=== PATIENT | female | born 1935 | race Two or more races ===

== ENCOUNTER 2017-09-11 12:18 | Inpatient (IN) | payer OTHER ==
[~2017-09-11] VITALS: Ht 162.6 cm; Wt 61.3 kg
[~2017-09-11 12:18] MED LIST: LEVO150T58 PO; SERT-135 PO
[2017-09-11] MEDS ORDERED: SODIUM CHLORIDE 0.9% 1,000 ML IV ONE (12:31)
[2017-09-11] MEDS ORDERED: ALBUTEROL SULF 2.5 MG/0.5ML(0.5%) NEB SOLN HHN ONE (12:45)
[2017-09-11] MEDS ORDERED: IPRATROPIUM BROM 0.5 MG/2.5ML INH SOL HHN ONE (12:45)
[2017-09-11] MEDS ORDERED: methylPREDNISolone SOD SUCC 125 MG/2 ML VL IV ONE (12:45)
[2017-09-11] MEDS ORDERED: LEVOFLOXACIN 500MG 100 ML IV ONE (12:45)
[2017-09-11 13:01] LABS: Basophils # (auto) 0.1 uL; Basophils % (auto) 0.9 % (0.0-2.0); Eosinophils # (auto) 0.6 uL; Eosinophils % (auto) 9.8 % (0.0-7.0); Lymphocytes # (auto) 0.9 uL; Lymphocytes % (auto) 15.8 % (10.0-50.0); Mean Corpuscular Hemoglobin 27.2 pg (28.0-32.0); Mean Corpuscular Hgb Conc. 32.5 g/dL (32.0-36.0); Mean Corpuscular Volume 83.7 fL (80.0-100.0); Monocytes # (auto) 0.8 uL; Monocytes % (auto) 12.7 % (0.0-12.0); Neutrophils # (auto) 3.6 uL; Neutrophils % (auto) 60.8 % (37.0-80.0); Platelet Count (auto) 142 10^3/uL (140-450); Red Blood Cells 4.42 10^6/uL (4.0-5.20); Red Cell Distribution Width 15.8 % (11.8-14.3)
[2017-09-11 13:22] LABS: Alanine Aminotransferase 22 U/L (13-56); Albumin 3.4 g/dL (3.4-5.0); Anion Gap 5 (5-15); BUN/Creatinine Ratio 30.4; Blood Urea Nitrogen 14 mg/dL (7-18); Calcium 8.1 mg/dL (8.5-10.1); Carbon Dioxide 32 mmol/L (21-32); Chloride 103 mmol/L (98-107); GFR African American 166 mL/min; GFR Non-African American 138 mL/min; Glucose 102 mg/dL (74-106); Potassium 3.9 mmol/L (3.5-5.1); Sodium 140 mmol/L (136-145)
[2017-09-11] MEDS ORDERED: HYDROcodone-ACET 5/325MG TAB PO PRN (13:30)
[2017-09-11] MEDS ORDERED: NITROGLYCERIN 0.4 MG SL TAB SL PRN (13:30)
[2017-09-11] MEDS ORDERED: ACETAMINOPHEN 500 MG TAB PO PRN (13:30)
[2017-09-11] MEDS ORDERED: PROMETHAZINE HCL 25 MG/ML 1ML IV PRN (13:30)
[2017-09-11] MEDS ORDERED: OSELTAMIVIR 75 MG CAP PO ONE (13:30)
[2017-09-11] MEDS ORDERED: MORPHINE SULFATE 4 MG/ML SYR/VIAL IV PRN ×2 (13:30)
[2017-09-11] MEDS ORDERED: ALBUTEROL SULF 2.5 MG/0.5ML(0.5%) NEB SOLN NEB PRN (13:30)
[2017-09-11] MEDS ORDERED: LACTULOSE 20Gm/30ML SOLN PO PRN (13:30)
[2017-09-11 13:31] LABS: Alkaline Phosphatase 64 U/L (45-117); Aspartate Aminotransferase 20 U/L (15-37); Bilirubin, Total 0.2 mg/dL (0.2-1.0); Total Protein 6.8 g/dL (6.4-8.2)
[2017-09-11] MEDS: OSELTAMIVIR 30 MG CAP PO SCH (13:45)
[2017-09-11] MEDS ORDERED: OSELTAMIVIR 30 MG CAP PO ONE (13:45)
[2017-09-11] MEDS: DOXYCYCLINE HYC 100MG/250ML 250 ML IV SCH (13:50)
[2017-09-11] MEDS: SODIUM CHLOR 0.9% PF (SALINE LOCK) 10ML VIAL IV SCH (14:00)
[2017-09-11] MEDS: methylPREDNISolone SOD SUCC 40 MG/ML VL IV SCH (18:07)
[2017-09-11] MEDS: ALBUTEROL SULF 2.5 MG/0.5ML(0.5%) NEB SOLN NEB SCH (19:08)
[2017-09-11] MEDS: IPRATROPIUM BROM 0.5 MG/2.5ML INH SOL NEB SCH (19:15)
[2017-09-11 21:35] VITALS: BP 128/64
[2017-09-11 22:00] VITALS: BP 140/70
[2017-09-11] MEDS: TEMAZEPAM 15 MG CAP PO PRN (22:02)
[2017-09-11] MEDS: CARVEDILOL 3.125 MG TAB PO SCH (22:02)
[2017-09-12] MEDS: IPRATROPIUM BROM 0.5 MG/2.5ML INH SOL NEB SCH ×4 (00:02→18:35)
[2017-09-12] MEDS: ALBUTEROL SULF 2.5 MG/0.5ML(0.5%) NEB SOLN NEB SCH ×4 (00:02→18:34)
[2017-09-12] MEDS: SODIUM CHLOR 0.9% PF (SALINE LOCK) 10ML VIAL IV SCH ×4 (01:15→22:12)
[2017-09-12] MEDS: methylPREDNISolone SOD SUCC 40 MG/ML VL IV SCH ×4 (01:16→18:06)
[2017-09-12] MEDS: DOXYCYCLINE HYC 100MG/250ML 250 ML IV SCH ×2 (01:16→14:00)
[2017-09-12 04:47] VITALS: BP 122/73
[2017-09-12] MEDS: LEVOTHYROXINE SODIUM 50 MCG TAB PO SCH (05:31)
[2017-09-12] MEDS: LEVOTHYROXINE SODIUM 100 MCG TAB PO SCH (05:31)
[2017-09-12] MEDS: LEVOTHYROXINE SODIUM 25 MCG TAB PO SCH (05:32)
[2017-09-12 09:00] VITALS: BP 116/56
[2017-09-12] MEDS: SERTRALINE HCL 50 MG TAB PO SCH (09:57)
[2017-09-12] MEDS: LORazepam 0.5 MG TAB PO PRN (09:58)
[2017-09-12] MEDS: PANTOPRAZOLE 40 MG TAB PO SCH (09:58)
[2017-09-12] MEDS: ENOXAPARIN SOD 40 MG/0.4 ML SYRINGE SC SCH (09:58)
[2017-09-12] MEDS: CARVEDILOL 3.125 MG TAB PO SCH ×2 (09:58→22:13)
[2017-09-12] MEDS: OSELTAMIVIR 30 MG CAP PO SCH ×3 (09:59→22:13)
[2017-09-12] MEDS ORDERED: LEVOTHYROXINE SODIUM 175 MCG PO SCH (10:00)
[2017-09-12] MEDS ORDERED: SERTRALINE HCL 150 MG PO SCH (10:00)
[2017-09-12 13:00] VITALS: BP 102/49
[2017-09-12 17:24] VITALS: BP 132/61
[2017-09-12 22:00] VITALS: BP 138/68
[2017-09-12] MEDS: TEMAZEPAM 15 MG CAP PO PRN (22:13)
[2017-09-13] MEDS: methylPREDNISolone SOD SUCC 40 MG/ML VL IV SCH ×4 (00:21→18:18)
[2017-09-13] MEDS: ACETYLCYSTEINE 10 %(100MG/ML) SOL 4ML NEB SCH ×4 (00:23→19:09)
[2017-09-13] MEDS: IPRATROPIUM BROM 0.5 MG/2.5ML INH SOL NEB SCH ×4 (00:23→19:09)
[2017-09-13] MEDS: ALBUTEROL SULF 2.5 MG/0.5ML(0.5%) NEB SOLN NEB SCH ×4 (00:23→19:09)
[2017-09-13] MEDS: DOXYCYCLINE HYC 100MG/250ML 250 ML IV SCH ×2 (01:30→12:53)
[2017-09-13 05:00] VITALS: BP 108/72
[2017-09-13] MEDS: SODIUM CHLOR 0.9% PF (SALINE LOCK) 10ML VIAL IV SCH ×3 (05:34→22:00)
[2017-09-13] MEDS: LEVOTHYROXINE SODIUM 100 MCG TAB PO SCH (06:26)
[2017-09-13] MEDS: LEVOTHYROXINE SODIUM 50 MCG TAB PO SCH (06:26)
[2017-09-13] MEDS: LEVOTHYROXINE SODIUM 25 MCG TAB PO SCH (06:26)
[2017-09-13 09:00] VITALS: BP 149/93
[2017-09-13] MEDS: SERTRALINE HCL 50 MG TAB PO SCH (10:42)
[2017-09-13] MEDS: OSELTAMIVIR 30 MG CAP PO SCH ×2 (10:42→22:00)
[2017-09-13] MEDS: CARVEDILOL 3.125 MG TAB PO SCH ×2 (10:43→22:00)
[2017-09-13] MEDS: PANTOPRAZOLE 40 MG TAB PO SCH (10:43)
[2017-09-13] MEDS: ENOXAPARIN SOD 40 MG/0.4 ML SYRINGE SC SCH (10:44)
[2017-09-13] MEDS: LORazepam 0.5 MG TAB PO PRN (11:01)
[2017-09-13 13:00] VITALS: BP 135/65
[2017-09-13] MEDS ORDERED: TAMIF30 PO (15:14)
[2017-09-13] MEDS ORDERED: TIOT17SP IN (15:14)
[2017-09-13] MEDS: PROMETHAZINE W/CODEINE 5 ML ORAL SYRUP PO SCH ×2 (15:30→22:00)
[2017-09-13 17:00] VITALS: BP 131/77
[2017-09-13 22:01] VITALS: BP 143/85
[2017-09-14] MEDS: ALBUTEROL SULF 2.5 MG/0.5ML(0.5%) NEB SOLN NEB SCH ×5 (00:29→23:59)
[2017-09-14] MEDS: IPRATROPIUM BROM 0.5 MG/2.5ML INH SOL NEB SCH ×5 (00:29→23:59)
[2017-09-14] MEDS: methylPREDNISolone SOD SUCC 40 MG/ML VL IV SCH ×4 (01:32→18:54)
[2017-09-14] MEDS: DOXYCYCLINE HYC 100MG/250ML 250 ML IV SCH ×2 (01:32→14:13)
[2017-09-14 05:32] VITALS: BP 153/86
[2017-09-14] MEDS: ACETYLCYSTEINE 10 %(100MG/ML) SOL 4ML NEB SCH ×3 (06:01→18:21)
[2017-09-14] MEDS: PROMETHAZINE W/CODEINE 5 ML ORAL SYRUP PO SCH ×3 (07:00→21:45)
[2017-09-14] MEDS: LEVOTHYROXINE SODIUM 50 MCG TAB PO SCH (07:00)
[2017-09-14] MEDS: LEVOTHYROXINE SODIUM 100 MCG TAB PO SCH (07:00)
[2017-09-14] MEDS: LEVOTHYROXINE SODIUM 25 MCG TAB PO SCH (07:00)
[2017-09-14] MEDS: SODIUM CHLOR 0.9% PF (SALINE LOCK) 10ML VIAL IV SCH ×3 (07:01→21:44)
[2017-09-14 08:00] VITALS: BP 164/84
[2017-09-14] MEDS: ENOXAPARIN SOD 40 MG/0.4 ML SYRINGE SC SCH (10:18)
[2017-09-14] MEDS: SERTRALINE HCL 50 MG TAB PO SCH (10:19)
[2017-09-14] MEDS: PANTOPRAZOLE 40 MG TAB PO SCH (10:19)
[2017-09-14] MEDS: LORazepam 0.5 MG TAB PO PRN (10:19)
[2017-09-14] MEDS: OSELTAMIVIR 30 MG CAP PO SCH ×2 (10:19→21:45)
[2017-09-14] MEDS: CARVEDILOL 3.125 MG TAB PO SCH ×2 (10:20→21:45)
[2017-09-14 12:00] VITALS: BP 132/77
[2017-09-14] MEDS ORDERED: PRE5T PO (12:39)
[2017-09-14] MEDS ORDERED: PRO625LQ PO (12:39)
[2017-09-14] MEDS ORDERED: FAM20T PO (12:39)
[2017-09-14] MEDS ORDERED: DOXY-216 PO (12:39)
[2017-09-14 17:17] VITALS: BP 128/91
[2017-09-14 22:00] VITALS: BP 145/78
[2017-09-15] MEDS: methylPREDNISolone SOD SUCC 40 MG/ML VL IV SCH ×3 (00:16→11:31)
[2017-09-15] MEDS: DOXYCYCLINE HYC 100MG/250ML 250 ML IV SCH ×2 (02:25→13:10)
[2017-09-15 05:00] VITALS: BP 144/81
[2017-09-15] MEDS: PROMETHAZINE W/CODEINE 5 ML ORAL SYRUP PO SCH (06:00)
[2017-09-15] MEDS: SODIUM CHLOR 0.9% PF (SALINE LOCK) 10ML VIAL IV SCH (06:00)
[2017-09-15] MEDS: LEVOTHYROXINE SODIUM 100 MCG TAB PO SCH (06:27)
[2017-09-15] MEDS: LEVOTHYROXINE SODIUM 50 MCG TAB PO SCH (06:27)
[2017-09-15] MEDS: LEVOTHYROXINE SODIUM 25 MCG TAB PO SCH (06:27)
[2017-09-15] MEDS: IPRATROPIUM BROM 0.5 MG/2.5ML INH SOL NEB SCH ×2 (07:28→11:58)
[2017-09-15] MEDS: ALBUTEROL SULF 2.5 MG/0.5ML(0.5%) NEB SOLN NEB SCH ×2 (07:28→11:58)
[2017-09-15] MEDS: ACETYLCYSTEINE 10 %(100MG/ML) SOL 4ML NEB SCH (07:30)
[2017-09-15 08:00] VITALS: BP 159/87
[2017-09-15] MEDS: ENOXAPARIN SOD 40 MG/0.4 ML SYRINGE SC SCH (09:24)
[2017-09-15] MEDS: OSELTAMIVIR 30 MG CAP PO SCH (09:24)
[2017-09-15] MEDS: PANTOPRAZOLE 40 MG TAB PO SCH (09:25)
[2017-09-15] MEDS: SERTRALINE HCL 50 MG TAB PO SCH (09:25)
[2017-09-15] MEDS: CARVEDILOL 3.125 MG TAB PO SCH (09:25)
[2017-09-15 09:29] VITALS: BP 159/87
[2017-09-15 11:20] VITALS: BP 159/87
== END 2017-09-15 13:45 | disposition home health service (06) | DRG 193 ==
LOC: EDBD 12:18 → ER 12:23 → TELE 12:24 → TELE-WESTW 20:19
PROVIDERS: ADMIT Internal Medicine; ATTEND Hospitalist
DX: J10.1 Influenza due to other identified influenza virus with other respiratory manifestations (principal); J96.00 Acute respiratory failure, unspecified whether with hypoxia or hypercapnia; J44.0 Chronic obstructive pulmonary disease with (acute) lower respiratory infection; J44.1 Chronic obstructive pulmonary disease with (acute) exacerbation; Z99.81 Dependence on supplemental oxygen; E03.9 Hypothyroidism, unspecified; J20.9 Acute bronchitis, unspecified; K59.00 Constipation, unspecified; G47.00 Insomnia, unspecified; F32.9 Major depressive disorder, single episode, unspecified; F41.9 Anxiety disorder, unspecified; Z90.49 Acquired absence of other specified parts of digestive tract; Z90.89 Acquired absence of other organs; Z88.2 Allergy status to sulfonamides; Z79.899 Other long term (current) drug therapy
CPT/HCPCS: 36415; 71045; 80053; 82550; 83605; 83735; 83880; 84443; 84484; 85025; 87040; 87081; 87804; 93005; 94640; 94644; 96361; 96374; 96375; 97163; 99291; G9035; J3490

== ENCOUNTER 2019-04-15 10:39 | Emergency (ER) | payer OTHER ==
[~2019-04-15] VITALS: Ht 142.2 cm; Wt 67.1 kg
[~2019-04-15 10:39] MED LIST changes: +DOXY-216 PO; +FAM20T PO; +PRE5T PO; +PRO625LQ PO; -SERT-135 PO; +SERT100T PO; +TAMIF30 PO; +TIOT17SP IN
[2019-04-15 10:48] VITALS: BP 147/78
[2019-04-15] MEDS ORDERED: ACETAMINOPHEN 325 MG TAB PO ONE (12:15)
[2019-04-15] MEDS ORDERED: KETOROLAC TROMETH 30 MG/ML 1ML VIAL IM ONE (12:15)
== END 2019-04-15 12:35 | disposition home or self-care (01) ==
LOC: ER 10:39
DX: M17.11 Unilateral primary osteoarthritis, right knee (principal); M71.21 Synovial cyst of popliteal space [Baker], right knee; M19.90 Unspecified osteoarthritis, unspecified site; J44.9 Chronic obstructive pulmonary disease, unspecified; E07.9 Disorder of thyroid, unspecified; Z79.899 Other long term (current) drug therapy; Z88.2 Allergy status to sulfonamides
CPT/HCPCS: 72100; 73562; 93971; 96372; 99284; J1885

== ENCOUNTER 2020-03-10 11:37 | Emergency (ER) | payer OTHER ==
[~2020-03-10] VITALS: Ht 144.8 cm; Wt 70.8 kg
[~2020-03-10 11:37] MED LIST changes: -DOXY-216 PO; +DOXY-286 PO; -FAM20T PO; +FAMO20TA10 PO
[2020-03-10 14:50] LABS: Albumin 3.7 g/dL (3.4-5.0); BUN/Creatinine Ratio 29.1; Calcium 8.6 mg/dL (8.5-10.1); Potassium 3.8 mmol/L (3.5-5.1)
[2020-03-10 14:51] LABS: Basophils # (auto) 0 10 ^3/uL (0-0.2); Basophils % (auto) 0.7 % (0.0-2.0); Eosinophils # (auto) 0.2 10 ^3/uL (0-0.8); Eosinophils % (auto) 4.7 % (0.0-7.0); Hematocrit 37.7 % (36.0-46.0); Hemoglobin 12.3 g/dL (12.2-16.2); Lymphocytes # (auto) 0.7 10 ^3/uL (0.4-5.4); Mean Corpuscular Hemoglobin 27.2 pg (28.0-32.0); Mean Corpuscular Hgb Conc. 32.7 g/dL (32.0-36.0); Mean Corpuscular Volume 83.3 fL (80.0-100.0); Monocytes # (auto) 0.9 10 ^3/uL (0-1.3); Monocytes % (auto) 16.9 % (0.0-12.0); Neutrophils # (auto) 3.3 10 ^3/uL (1.6-8.6); Neutrophils % (auto) 64.7 % (37.0-80.0); Nucleated Red Blood Cells % 0.1 %; Platelet Count (auto) 162 10^3/uL (140-450); Red Blood Cells 4.53 10^6/uL (4.0-5.20); Red Cell Distribution Width 14.8 % (11.8-14.3); White Blood Cell 5.2 10^3/uL (4.4-10.8)
[2020-03-10 14:53] LABS: Bilirubin, Total 0.4 mg/dL (0.2-1.0); Total Protein 7.6 g/dL (6.4-8.2)
[2020-03-10 14:55] LABS: CRP High Sensitivity 0.52 mg/dL (< 0.3)
[2020-03-10 15:59] VITALS: BP 160/61
== END 2020-03-10 16:04 | disposition home or self-care (01) ==
LOC: ER 11:37
DX: M79.89 Other specified soft tissue disorders (principal); M19.90 Unspecified osteoarthritis, unspecified site; J44.9 Chronic obstructive pulmonary disease, unspecified; E07.9 Disorder of thyroid, unspecified; Z88.2 Allergy status to sulfonamides
CPT/HCPCS: 36415; 71046; 80053; 82728; 83615; 83880; 85025; 86141; 93971

== ENCOUNTER 2022-09-07 17:30 | Emergency (ER) | payer OTHER ==
[~2022-09-07] VITALS: Ht 162.6 cm; Wt 73.0 kg
[2022-09-07 19:16] VITALS: BP 148/65
== END 2022-09-07 20:53 | disposition left against medical advice (07) ==
LOC: ER 17:30 → EDBD 17:30 → ER 19:05
DX: R10.31 Right lower quadrant pain (principal); Z53.21 Procedure and treatment not carried out due to patient leaving prior to being seen by health care provider